=== PATIENT | female | born 1935 | race Hispanic/Latino ===

== ENCOUNTER 2018-02-07 09:06 | Observation (INO) | payer MEDICARE, OTHER ==
[~2018-02-07] VITALS: Ht 160 cm; Wt 63.7 kg
[2018-02-07] MEDS ORDERED: PANTOPRAZOLE 40 MG 10ML VIAL IV STA (09:22)
[2018-02-07] MEDS ORDERED: PANTOPRAZOLE 40 MG 10ML VIAL IV SCH (09:30)
[2018-02-07 09:44] LABS: BASOPHILS # (AUTO) 0.1 (0.0-0.1); EOSINOPHILS # (AUTO) 0.2 (0.0-0.4); EOSINOPHILS % 3.2 % (0.0-6.0); HEMATOCRIT 38.5 % (34.2-44.1); HEMOGLOBIN 12.9 g/dL (12.0-16.0); LYMPHOCYTES # (AUTO) 2.3 (1.0-3.2); MEAN CORPUSCULAR HEMOGLOBIN 30.8 pg (28-32); MEAN CORPUSCULAR HGB CONC 33.5 g/dL (31-35); MEAN CORPUSCULAR VOLUME 91.9 fL (81-99); MONOCYTES # (AUTO) 0.5 (0.2-0.8); MONOCYTES % 7.6 % (4.4-11.3); NEUTROPHILS # (AUTO) 3.3 (2.1-6.9); NEUTROPHILS % 51.9 % (38.7-80.0); PLATELET COUNT 191 x10e3/uL (140-360); RED BLOOD COUNT 4.19 x10e6/uL (3.6-5.1); RED CELL DISTRIBUTION WIDTH 13.3 % (11.7-14.4)
[2018-02-07 10:07] LABS: ALBUMIN/GLOBULIN RATIO 0.9 (0.8-2.0); ANION GAP 12.6 mmol/L (8-16); CALCIUM 10.5 mg/dL (8.4-10.2); CREATININE, SERUM 1.07 mg/dL (0.57-1.11); POTASSIUM 3.6 mmol/L (3.5-5.1)
[2018-02-07 10:13] LABS: INR 0.99; PARTIAL THROMBOPLASTIN TIME 25.4 seconds (23.8-35.5); PROTHROMBIN TIME 12.3 seconds (11.9-14.5)
[2018-02-07 12:00] VITALS: BP 146/65
[2018-02-07] MEDS ORDERED: ALLEGRA ALLERG180 MG PO (12:07)
[2018-02-07] MEDS ORDERED: LOTREL 10-40 M1 EACH PO (12:07)
[2018-02-07 12:08] VITALS: BP 163/72
[2018-02-07 12:20] VITALS: BP 163/72
[2018-02-07 15:14] VITALS: BP 175/79
[2018-02-07 16:07] LABS: HEMATOCRIT 33.3 % (34.2-44.1)
[2018-02-07 20:00] VITALS: BP 143/68
[2018-02-07 21:43] LABS: HEMATOCRIT 33.9 % (34.2-44.1); HEMOGLOBIN 11.2 g/dL (12.0-16.0)
[2018-02-08] VITALS: BP 131/62
[2018-02-08 02:25] VITALS: BP 131/62
[2018-02-08 04:00] VITALS: BP 131/60
[2018-02-08 04:05] LABS: HEMATOCRIT 34.1 % (34.2-44.1); HEMOGLOBIN 11.3 g/dL (12.0-16.0)
[2018-02-08 08:00] VITALS: BP 171/77
[2018-02-08] MEDS ORDERED: BENAZEPRIL HCL 10 MG TAB PO SCH (09:00)
[2018-02-08] MEDS ORDERED: AMLODIPINE BESYLATE 10 MG TAB PO SCH (09:00)
[2018-02-08] MEDS ORDERED: PANTOPRAZOLE 40 MG 10ML VIAL IV SCH (09:00)
[2018-02-08] MEDS ORDERED: BENAZEPRIL PO SCH (09:00)
[2018-02-08] MEDS ORDERED: AMLODIPINE BESYLATE PO SCH (09:00)
[2018-02-08] MEDS ORDERED: [UNRECOGNIZED DRUG - OTHER] PO SCH (09:00)
[2018-02-08 12:10] LABS: HEMATOCRIT 36.9 % (34.2-44.1); HEMOGLOBIN 12.1 g/dL (12.0-16.0)
[2018-02-08 14:51] VITALS: BP 171/77
--- NOTE | 2018-02-08 18:55 | History and Physical ---
PRIMARY CARE PROVIDER: Dr. Florin Underwood. ADMITTING DIAGNOSES 1. Rectal bleeding and/or hematochezia. 2. Hypertension. DISCHARGE DIAGNOSES 1. Rectal bleeding and/or hematochezia, most likely due to internal hemorrhoids. 2. Hypertension. BRIEF HISTORY: Ms. Layne is an 82-year-old lady presenting with an episode of rectal bleeding that alarmed her. She came to the ER for evaluation. She did have some gross red blood per rectum, but no evidence of active bleeding. The patient was admitted for observation and serial H and H's. REVIEW OF SYSTEMS: She denied fever, chills, or weight loss. She denied chest pain or palpitation. She denied shortness of breath, wheezing, or cough. She denied abdominal pain, nausea, vomiting, or hematochezia. Denied hematemesis or melena. She denied dysuria or flank pain. She denied rash or pruritus. She denied joint pain or swelling. She denied headache, vertigo, or loss of consciousness. She denied depression, agitation, or homicidal or suicidal ideation. PAST SURGICAL HISTORY: Significant for hypertension and allergies, for which she takes amlodipine 10 mg daily, benazepril 40 mg daily, and Rosemary 180 mg daily. She has a distant history of hysterectomy and cholecystectomy and a left knee replacement in 2011. ALLERGIES: SHE HAS A STATED ALLERGY TO BACTRIM AND IODINE. FAMILY HISTORY: Unremarkable. There is some scattered hypertension. SOCIAL HISTORY: The patient is . [place]ian is her primary language. She is a former smoker. She does not drink or use illegal drugs, and she is generally independently functioning. PHYSICAL EXAM PSYCHIATRIC: She is alert and oriented x3 with normal mood and affect. CONSTITUTIONAL: She has a normal body habitus, is in no acute distress. VITAL SIGNS: Blood pressure 131/60, pulse 80 and regular, respiratory rate 18, O2 sat 92% on room air, and temperature 97.7. HEENT: Her head is atraumatic. Her eyes are anicteric with clear conjunctivae. Ears and nares are without erythema or discharge. Oropharynx is clear. NECK: Supple. No mass or thyromegaly. LYMPHATIC SYSTEM: She has no palpable cervical, axillary, or inguinal adenopathy. CARDIOVASCULAR: Her heart has a regular rate rhythm without murmur or extra heart sounds. She has no peripheral edema. She has no carotid bruit. She has weak dorsal pedal pulses. RESPIRATORY: Lungs are clear to auscultation and percussion, somewhat diminished breath sounds without wheezing, and she has normal respiratory effort. GASTROINTESTINAL: Her abdomen is soft without organomegaly, masses, or tenderness. She has normal bowel sounds present. CUTANEOUS: Her skin is warm and dry to touch, and no rash or skin breakdown. MUSCULOSKELETAL: Her joints are in normal alignment without erythema or swelling. She has no calf tenderness. NEUROLOGIC: Exam is nonfocal with intact cranial nerves and no motor or sensory deficits. DIAGNOSTIC STUDIES: Her CBC showed a white count of 6.3 with a normal differential, hemoglobin 12.9, hematocrit 38.5, and platelet count 191,000. Serial H and H's done every 4 hours subsequent to that showed H and H's of 11.1/33.3, 11.2/33.9, 11.3/34.1, and 12.1/36.9; all very stable. Her coags are normal. Her chemistry shows normal electrolytes, CO2 is 24, creatinine 1.07, BUN 24 for a GFR of 49, calcium is 10.5, and glucose is 109. Transaminases, bilirubin, and alk phos were all normal. IMPRESSION AND PLAN 1. Rectal bleeding: Most likely internal hemorrhoids. The patient's H and H had been stable. She has had no further bleeding since she presented to the ED. 2. Hypertension, well controlled on her current medications. We will continue amlodipine and benazepril. 3. For prophylaxis, the patient was started on Protonix 40 mg daily. HOSPITAL COURSE: The patient was admitted overnight for observation. Serial H and H's were negative for any significant drop. She had no further evidence of bleeding. She was on Protonix for GI prophylaxis. Her blood pressure remained under fair control with her blood pressure medications, and she was discharged home the next day to continue with her regular home medications. She can resume a regular diet and activity, and she will follow up with her PCP within 2 weeks. She will return to the ER in the event of any further rectal bleeding. Job#: [id number] AMY
== END 2018-02-08 17:15 | disposition home or self-care (01) ==
LOC: ER 09:06 → ERHOLD 11:03 → IMCU 11:35
PROVIDERS: ADMIT Internal Medicine; ATTEND Internal Medicine
DX: K92.1 Melena (principal); K64.8 Other hemorrhoids; I10 Essential (primary) hypertension; Z87.891 Personal history of nicotine dependence
CPT/HCPCS: 36415 ×2; 80053; 85014 ×2; 85018 ×2; 85025; 85610; 85730; 99284; G0378 ×2

== ENCOUNTER 2022-02-20 17:02 | Emergency (ER) | payer MEDICARE, OTHER ==
[~2022-02-20] VITALS: Ht 160 cm; Wt 63.5 kg
[~2022-02-20 17:02] MED LIST: ALLEGRA ALLERG180 MG PO; LOTREL 10-40 M1 EACH PO
[2022-02-20] MEDS ORDERED: CEFPODOXIME PR200 MG PO (17:44)
== END 2022-02-20 17:52 | disposition home or self-care (01) ==
LOC: ER 17:08
DX: R30.0 Dysuria (principal); N39.0 Urinary tract infection, site not specified; I10 Essential (primary) hypertension; F41.9 Anxiety disorder, unspecified
CPT/HCPCS: 99282

== ENCOUNTER 2022-02-21 21:53 | Emergency (ER) | payer MEDICARE, OTHER ==
[~2022-02-21] VITALS: Ht 160 cm; Wt 63.5 kg
[~2022-02-21 21:53] MED LIST changes: +CEFPODOXIME PR200 MG PO
[2022-02-21] MEDS ORDERED: METHYLPREDNISOLONE SOD SUCC 125 MG/2ML VIAL IM ONE (22:15)
[2022-02-21] MEDS ORDERED: DIPHENHYDRAMINE HCL 25 MG CAP PO ONE (22:15)
[2022-02-21] MEDS ORDERED: FAMOTIDINE 20 MG TAB PO ONE (22:15)
[2022-02-21 22:51] VITALS: BP 139/80
== END 2022-02-21 22:53 | disposition home or self-care (01) ==
LOC: ER 21:58
DX: R21 Rash and other nonspecific skin eruption (principal); T37.8X5A Adverse effect of other specified systemic anti-infectives and antiparasitics, initial encounter; I10 Essential (primary) hypertension; F41.9 Anxiety disorder, unspecified
CPT/HCPCS: 99282; J2930